=== PATIENT | female | born 1940 | race Caucasian/White ===

== ENCOUNTER → 2018-05-28 | Outpatient (CLI) | payer OTHER ==
[~2018-05-28] MED LIST: ALEVE220 MG PO; ASPIR 8181 MG PO; BRILINTA90 MG PO; CARVEDILOL12.5 MG; COREG3.125 MG PO; GABAPENTIN 100100 MG PO; GLUCOPHAGE1000 MG PO; KEFLEX500 MG PO; LEVOTHYROXIN0.112 M1 PO; LIPITOR 20 MG T20 M1 PO; LISINOPRIL5 MG PO; NAPROSYN500 MG PO; NITROGLYCERIN0.4 MG SUBLING; NORCO 5-325 TA1 EACH PO; OS-CAL 500+D C1 EACH PO; PENNSAID112 GM INTRAOCULR; PRILOSEC OTC20 MG PO; PRILOSEC20 MG; SYNTHROID75 MCG PO; TIMOLOL MA0.5 %/5 M2; TYLENOL325 MG PO; VICODIN 5-5001 EACH PO
--- NOTE | 2018-05-28 16:16 | 2DMMODE ---
[place] [address] 2 D/M-MODE ECHOCARDIOGRAM Name: DEE QUINTANA Room: [facility]#: [id number] Admission: 05/28/18 Attend Phys: MARYBETH Donaldson Discharge: Date of : 40 Date of Service: 05/28/18 1615 Report #: [id number] THIS REPORT FOR: //name// APPROVED REPORT Study performed: 05/28/2018 08:05:20 EXAM: Comprehensive 2D, Doppler, and color-flow Echocardiogram Patient Location: Out-Patient Status: routine BSA: 1.56 HR: 78 bpm BP: 150/78 mmHg Other Information Study Quality: Good Indications Aortic Valve Disease Cardiomyopathy 2D Dimensions IVSd: 12.83 (7-11mm) LVOT Diam: 20.10 (18-24mm) LVDd: 38.85 mm PWd: 11.70 (7-11mm) Ascending Ao: 28.33 (22-36mm) LVDs: 29.82 (25-40mm) Aortic Root: 29.60 mm Volumes Left Atrial Volume (Systole) LA ESV Index: 32.80 mL/m2 Aortic Valve AoV Peak Jaxson.: 2.40 m/s AO Peak Gr.: 23.07 mmHg LVOT Max P.55 mmHg AO Mean Gr.: 13.85 mmHg LVOT Mean P.90 mmHg LVOT Max V: 0.94 m/s AO V2 VTI: 45.52 cm LVOT Mean V: 0.64 m/s MARION (VTI): 1.38 cm2 LVOT V1 VTI: 19.82 cm Mitral Valve MV Peak Gr.: 7.77 mmHg MV Mean Gr.: 3.44 mmHg E/A Ratio: 0.56 MV Decel. Time: 352.23 [place] [address] 2 D/M-MODE ECHOCARDIOGRAM Name: ROB QUINTANAVIEVE Room: [facility]#: [id number] Admission: 05/28/18 Attend Phys: MARYBETH Donaldson Discharge: Date of : 40 Date of Service: 05/28/18 1615 Report #: [id number] MV E Max Jaxson.: 0.76 m/s MV PHT: 102.15 ms MVA (PHT): 2.15 cm2 TDI E/Lateral E': 12.67 E/Medial E': 15.20 Medial E' Jaxson.: 0.05 m/s Lateral E' Jaxson.: 0.06 m/s Pulmonary Valve PV Peak Jaxson.: 0.87 m/s PV Peak Gr.: 3.05 mmHg Tricuspid Valve RAP Estimate: 5.00 mmHg TR Peak Gr.: 22.33 mmHg RVSP: 27.33 mmHg PA Pressure: 27.33 mmHg Left Ventricle The left ventricle is normal size. There is significant distal septal and anteroapical hypo-akinesis There is normal left ventricular wall thickness. Left ventricular systolic function is moderately decreased. LVEF is 35%. Grade I - abnormal relaxation pattern. Right Ventricle The right ventricle is normal size. The right ventricular systolic function is normal. Atria Left atrium is moderately dilated. The right atrium size is normal. Aortic Valve Moderate aortic valve sclerosis. No aortic regurgitation is present. Mild aortic stenosis. Mitral Valve Severe mitral annular calcification. Mild mitral regurgitation. No significant mitral valve stenosis. Tricuspid Valve The tricuspid valve is normal in structure. Mild tricuspid regurgitation. Pulmonic Valve The pulmonary valve is normal in structure. There is no [place]mon[place] [address] 2 D/M-MODE ECHOCARDIOGRAM Name: DEE QUINTANA Room: [facility]#: [id number] Admission: 05/28/18 Attend Phys: Tiffany Blackman, DEMOLITIONIST Discharge: Date of : 40 Date of Service: 05/28/18 1615 Report #: [id number] Great Vessels The aortic root is normal in size. IVC is normal in size and collapses >50% with inspiration. Pericardium There is no pericardial effusion. <Conclusion> The left ventricle is normal size. There is normal left ventricular wall thickness. Left ventricular systolic function is moderately decreased. LVEF is 35%. Grade I - abnormal relaxation pattern. The right ventricle is normal size. Left atrium is moderately dilated. The right atrium size is normal. Moderate aortic valve sclerosis. No aortic regurgitation is present. Mild aortic stenosis. Severe mitral annular calcification. Mild mitral regurgitation. The tricuspid valve is normal in structure. Mild tricuspid regurgitation. IVC is normal in size and collapses >50% with inspiration. There is no pericardial effusion. There is significant distal septal and anteroapical hypo-akinesis <ELECTRONICALLY SIGNED> By: Bhavesh Hernandez MD, FACC 05/28/18 1615 1615 1615 Bhavesh Hernandez MD, FACC /INF
== END ==
LOC: M.CRD 07:56
DX: I08.1 Rheumatic disorders of both mitral and tricuspid valves (principal); I25.5 Ischemic cardiomyopathy

== ENCOUNTER 2019-04-30 12:10 | Inpatient (IN) | payer OTHER, SELFPAY ==
[~2019-04-30] VITALS: Ht 139.7 cm; Wt 67.1 kg
[2019-04-30 12:14] VITALS: BP 101/66
[2019-04-30 13:09] LABS: ABSOLUTE BASOPHILS 0.1 thou/uL (0.0-0.2); ABSOLUTE EOSINOPHILS 0.1 thou/uL (0.0-0.7); ABSOLUTE LYMPHOCYTES 1.9 thou/uL (0.8-5.3); ABSOLUTE MONOCYTES 0.7 thou/uL (0.0-1.2); ABSOLUTE NEUTROPHILS 5.9 thou/uL (1.6-8.1); EOSINOPHILS 0.8 %; HEMATOCRIT 34.5 % (37.0-47.0); HEMOGLOBIN 11.5 gm/dL (12.0-15.0); LYMPHOCYTES 22.1 %; MCH 26.7 pg (26.0-34.0); MCHC 33.3 g/dL (28.0-37.0); MCV 80.4 fL (80.0-100.0); MONOCYTES 8.5 %; MPV 7.4 fl. (7.2-11.1); NUCLEATED RBCS 0 /100WBC; PLATELET COUNT* 429 thou/uL (150-400); POLYS 67.6 %; RBC 4.29 mil/uL (4.20-5.00); RDW-CV 19.1 % (10.5-14.5); WBC 8.7 thou/uL (4.0-11.0)
[2019-04-30 13:18] LABS: CREATININE 0.8 mg/dL (0.6-1.3); POTASSIUM 5.1 mmol/L (3.5-5.1)
[2019-04-30 13:21] LABS: APTT 26.9 Seconds (25.0-31.3); INR 1.3; PROTIME 12.9 Seconds (9.20-11.50)
[2019-04-30 13:32] LABS: INFLUENZA A ANTIGEN Negative (Negative)
[2019-04-30 13:33] LABS: ALBUMIN 3.5 g/dL (3.4-5.0); CK-MB MASS 2.2 ng/mL (<0.5-3.6); MAGNESIUM 1.2 mg/dL (1.8-2.4); TOTAL BILIRUBIN 0.4 mg/dL (<0.1-1.0); TOTAL PROTEIN 6.7 g/dL (6.4-8.2)
--- NOTE | 2019-04-30 14:18 | EKG ---
[place] [address] ELECTROCARDIOGRAM REPORT Name: DEE QUINTANA Room: [place] [address] ADM IN [facility].#: [id number] Admission: 04/30/19 Attend Phys: Brian Burgess MD Discharge: Date of : 40 Report #: [id number] THIS REPORT FOR: //name// [facility] ED Test Date: 2019-04-30 Test Time: 12:14:59 Pat Name: DEE QUINTANA Department: Room: [facility] Gender: F Electric Cell Tender: : 1940 Requested By: Riely Villareal Order Number: [id number] : Bhavesh Hernandez Measurements Intervals [place] Rate: 120 P: W[place]: QRS: -15 QRSD: 158 T: 173 QT: 321 QTc: 454 Interpretive Statements Atrial fibrillation Left bundle branch block Compared to ECG 08/08/2016 08:07:24 Sinus rhythm no longer present Electronically Signed On 04-30-2019 14:18:05 PROFESSIONAL NURSING ASSISTANT by Bhavesh Hernandez [email or web address] <ELECTRONICALLY SIGNED> By: Bhavesh Hernandez MD, [facility] 04/30/19 1418 1214 1214 Bhavesh Hernandez MD, FAC /EPI
[2019-04-30 15:44] VITALS: BP 128/66
[2019-04-30 17:28] LABS: CHOLESTEROL 94 mg/dL (<200); HDL CHOLESTEROL 46 mg/dL (>40); LDL CHOLESTEROL 34 mg/dL (<100); SERUM ASSESSMENT Clear; TRIGLYCERIDE 72 mg/dL (<150); VLDL 14 mg/dL (<40)
[2019-04-30 17:29] LABS: URINE BILIRUBIN NEGATIVE (Negative); URINE BLOOD NEGATIVE (Negative); URINE CLARITY CLEAR; URINE COLOR YELLOW; URINE GLUCOSE-RANDOM NEGATIVE (Negative); URINE KETONES 1+ (Negative); URINE LEUKOCYTES-REFLEX NEGATIVE (Negative); URINE NITRITE-REFLEX NEGATIVE (Negative); URINE PROTEIN NEGATIVE (Negative); URINE SPECIFIC GRAVITY >= 1.030 (1.005-1.030); URINE UROBILINOGEN 0.2 E.U./dl (0.2-1.0)
[2019-04-30] MEDS ORDERED: IRON325 PO (17:59)
[2019-04-30] MEDS ORDERED: VITAMIN D32000 UNIT PO (18:00)
[2019-04-30] MEDS ORDERED: OCUVITE ADULT1 EAC1 PO (18:02)
[2019-04-30 20:02] VITALS: BP 104/75
[2019-04-30 21:00] VITALS: BP 130/67
[2019-04-30 22:01] VITALS: BP 90/68
[2019-04-30 23:01] VITALS: BP 122/57
[2019-05-01] VITALS (23 sets, daily range): BP systolic 97–169; BP diastolic 59–134
[2019-05-01 03:40] LABS: HEMATOCRIT 30.8 % (37.0-47.0); HEMOGLOBIN 10.5 gm/dL (12.0-15.0); MCH 26.9 pg (26.0-34.0); MCHC 34.1 g/dL (28.0-37.0); MCV 78.8 fL (80.0-100.0); MPV 7.4 fl. (7.2-11.1); RBC 3.91 mil/uL (4.20-5.00); RDW-CV 18.7 % (10.5-14.5); WBC 7.8 thou/uL (4.0-11.0)
[2019-05-01 04:10] LABS: CALCIUM 8.8 mg/dL (8.5-10.1); CREATININE 0.6 mg/dL (0.6-1.3); MAGNESIUM 1.8 mg/dL (1.8-2.4); POTASSIUM 4.8 mmol/L (3.5-5.1)
--- NOTE | 2019-05-01 17:19 | CARDNUC ---
[place] [address] CARDIAC NUCLEAR IMAGING REPORT Name: DEE QUINTANA Room: [address] IN [facility]#: [id number] Admission: 04/30/19 Attend Phys: Brian Burgess MD Discharge: Date of : 40 Date of Service: 05/01/19 1718 Report #: [id number] THIS REPORT FOR: //name// APPROVED REPORT Imaging Protocol: Rest Tc-99m/Stress Tc-99m 1 day Study performed: 04/30/2019 16:45:00 Indication: Fatigue Patient Location: In-Patient Room #: icu-6 Stress Tech: Maria Antonia Mccartney Stress Nurse: Rossi Calles RN NM Tech:ANGEL Carcamo Ht: 4 ft 7 in Wt: 147 lbs BSA: 1.54 m2 BMI: 34.16 Medical History Medical History: CAD non obstructive, Cardiomyopathy, HTN, Hyperlipidemia, Diabetes, Atrial Fibrillation Medications: asa-325 lisinopril, diltiazem, carvedilol, amlodipine, atorvastatin Allergies: nkda Cardiac Risk Factors: Age, Hyperlipidemia, HTN, DM, FHX of CAD Previous Cardiac Procedures: PCI Exercise History: Indeterminate Meds Held (24 hrs): carvedilol Resting Data Rest SPECT myocardial perfusion imaging was performed in supine position 30 minutes following the intravenous injection of 11.5 mCi of Tc-99m Sestamibi. Time of rest injection: 1215 Date: 05/01/2019 The images were gated to evaluate regional wall motion and calculate left ventricular ejection fraction. Administration Route: IV Pharmacologic Stress Pharmacologic stress test was performed by injecting Regadenoson 0.4 mg IV push over 10-15 seconds immediately followed by the intravenous injection of 34.3 mCi of Tc-99m Sestamibi. Time of stress injection: 1355 Date: 05/01/2019 Administration Route: [place] [address] CARDIAC NUCLEAR IMAGING REPORT Name: DEE QUINTANA Room: [address] IN [facility]#: [id number] Admission: 04/30/19 Attend Phys: Brian Burgess MD Discharge: Date of : 40 Date of Service: 05/01/19 1718 Report #: [id number] Gated Stress SPECT was performed 40 minutes after stress injection. The images were gated to evaluate regional wall motion and calculate left ventricular ejection fraction. Stress only was performed in the Supine position. Stress Test Details Stress Test: Pharmacologic stress testing performed using 0.4 mg of regadenoson per 5 mL given IV over 10 seconds. Reason for pharmacologic stress test: a fib. 60 mg caffeine given for nausea. HR Max Heart Rate (APMHR): 142 bpm Resting HR: 77 bpm Target HR (85% APMHR): 120 bpm Max HR Achieved: 140 bpm % of APMHR: 98 Recovery HR: 92 bpm BP Resting BP: 123/72 mmHg Max BP: 167/73 mmHg Recovery BP: 155/79 mmHg ECG Resting ECG: atrial fibrillation, LBBB Stress ECG: atrial fibrillation, LBBB Recovery ECG: atrial fibrillation, RBBB Clinical Reason for Termination: Completed protocol Exercise duration: 0 min sec Exercise capacity: 1 METs The patient tolerated Lexiscan infusion without significant cardiac symptoms. Nurse Comments pt has influeza b and elevated troponin x4. troponins leveling off. Dr Elizalde consulted regarding test. OK to do test per dr elizalde Stress ECG Conclusion The baseline 12-lead EKG shows atrial fibrillation with left bundle-branch block. EKGs obtained during and post Lexiscan infusion show atrial for ablation with left bundle-branch block. Study Quality Study: Good Artifact: [place] [address] CARDIAC NUCLEAR IMAGING REPORT Name: DEE QUINTANA Room: [address]#: [id number] Admission: 04/30/19 Attend Phys: Brian Burgess MD Discharge: Date of : 40 Date of Service: 05/01/19 1718 Report #: [id number] Study Data At rest, the left ventricular ejection fraction was 18%.. Post stress, the left ventricular ejection was 20%.. TID = 1.04. Perfusion Perfusion images show a moderate size severe intensity fixed apical defect consistent with prior infarct. There is photopenia involving the basal portion the inferior wall consistent with diaphragmatic attenuation artifact. No significant reversible defects were identified. Wall Motion There is global hypokinesis with akinesis of the apex. There is underlying left ventricular dyssynergy from bundle-branch block. Global LV systolic function is significantly decreased. Nuclear Conclusion ECG Findings: non-diagnostic Clinical Findings: negative for ischemia Nuclear Findings: negative for ischemia Exercise Capacity: not assessed Left Ventricular Function: abnormal Perfusion images show evidence of prior apical infarct. There is no evidence of ongoing ischemia. There is severe left ventricular systolic dysfunction as outlined above. This is a high risk study based on left ventricular systolic dysfunction. Consider echocardiographic correlation. <Conclusion> The baseline 12-lead EKG shows atrial fibrillation with left bundle-branch block. EKGs obtained during and post Lexiscan infusion show atrial for ablation with left bundle-branch block. <ELECTRONICALLY SIGNED> By: Doug Elizalde MD, FACC 05/01/191717 17 17 Doug Elizalde MD, FACC /INF
[2019-05-02] VITALS (13 sets, daily range): BP systolic 103–155; BP diastolic 48–82
[2019-05-02 03:13] LABS: HEMATOCRIT 33.8 % (37.0-47.0); HEMOGLOBIN 11.1 gm/dL (12.0-15.0); MCH 26.4 pg (26.0-34.0); MCHC 32.8 g/dL (28.0-37.0); MCV 80.6 fL (80.0-100.0); MPV 7.3 fl. (7.2-11.1); RBC 4.2 mil/uL (4.20-5.00); RDW-CV 19.3 % (10.5-14.5); WBC 7.8 thou/uL (4.0-11.0)
[2019-05-02 03:25] LABS: CALCIUM 8.6 mg/dL (8.5-10.1); CREATININE 0.7 mg/dL (0.6-1.3); MAGNESIUM 1.5 mg/dL (1.8-2.4); POTASSIUM 5.3 mmol/L (3.5-5.1); TROPONIN-I LEVEL 0.21 ng/mL (<0.06)
[2019-05-02] MEDS ORDERED: ELIQUIS5 MG PO (09:23)
[2019-05-02] MEDS ORDERED: TAMIFLU75 MG PO (09:23)
[2019-05-02] MEDS ORDERED: ASA81BEC PO (09:23)
[2019-05-02] MEDS ORDERED: PACERONE 200 M200 M1 PO (09:23)
[2019-05-02] MEDS ORDERED: CARVEDILOL12.5 MG PO (09:23)
--- NOTE | 2019-05-02 11:13 | 2DMMODE ---
[place] [address] 2 D/M-MODE ECHOCARDIOGRAM Name: DEE QUINTANA Room: [address] ADM IN [facility]#: [id number] Admission: 04/30/19 Attend Phys: Brian Burgess MD Discharge: Date of : 40 Date of Service: 05/02/19 1113 Report #: [id number] THIS REPORT FOR: //name// APPROVED REPORT Study performed: 05/02/2019 10:24:40 EXAM: Comprehensive 2D, Doppler, and color-flow Echocardiogram Patient Location: In-Patient Room #: 006 Status: routine BSA: 1.54 HR: 97 bpm BP: 103/71 mmHg Rhythm: NSR Other Information Study Quality: Good Indications Atrial Fibrillation Cardiomyopathy 2D Dimensions IVSd: 13.20 (7-11mm) LVOT Diam: 18.97 (18-24mm) LVDd: 37.17 mm PWd: 13.87 (7-11mm) LVDs: 30.32 (25-40mm) Aortic Root: 26.41 mm Volumes Left Atrial Volume (Systole) LA ESV Index: 65.90 mL/m2 Aortic Valve AoV Peak Jaxson.: 2.90 m/s AO Peak Gr.: 33.70 mmHg LVOT Max P.57 mmHg AO Mean Gr.: 19.98 mmHg LVOT Mean P.80 mmHg LVOT Max V: 0.94 m/s AO V2 VTI: 51.00 cm LVOT Mean V: 0.61 m/s MARION (VTI): 0.95 cm2 LVOT V1 VTI: 17.21 cm Mitral Valve MV Mean Gr.: 4.29 mmHg MV Decel. Time: 172.73 [place] [address] 2 D/M-MODE ECHOCARDIOGRAM Name: STEELEDEE Room: [address] ADM IN M.R.#: [id number] Admission: 04/30/19 Attend Phys: Brian Burgess MD Discharge: Date of : 40 Date of Service: 05/02/19 1113 Report #: [id number] MV PHT: 50.09 ms MVA (PHT): 4.39 cm2 TDI Medial E' Jaxson.: 0.06 m/s Lateral E' Jaxson.: 0.09 m/s Pulmonary Valve PV Peak Jaxson.: 1.01 m/s PV Peak Gr.: 4.12 mmHg Tricuspid Valve RAP Estimate: 5.00 mmHg TR Peak Gr.: 37.75 mmHg RVSP: 42.00 mmHg PA Pressure: 42.00 mmHg Left Ventricle The left ventricle is normal size. Regional wall motion abnormalities are noted with distal septal and apical akinesis. Mild concentric left ventricular hypertrophy. Left ventricular systolic function is moderate to severely decreased. LVEF is 30-35%. This study is not technically sufficient to allow evaluation of the LV diastolic function due to atrial fibrillation. Right Ventricle The right ventricle is normal size. The right ventricular systolic function is normal. Atria Left atrium is severely dilated. The right atrium size is normal. Aortic Valve Moderate aortic valve sclerosis. No aortic regurgitation is present. Moderate aortic stenosis. Mitral Valve Severe mitral annular calcification. Mild mitral regurgitation. No evidence of mitral valve stenosis. Tricuspid Valve The tricuspid valve is normal in structure. Mild tricuspid regurgitation. Moderate pulmonary hypertension. Pulmonic Valve The pulmonary valve is normal in structure. There is no pulmonic valvular [place] [address] 2 D/M-MODE ECHOCARDIOGRAM Name: DEE QUINTANA Room: [address] IN [facility].#: [id number] Admission: 04/30/19 Attend Phys: Brian Burgess MD Discharge: Date of : 40 Date of Service: 05/02/19 1113 Report #: [id number] Great Vessels The aortic root is normal in size. IVC is normal in size and collapses >50% with inspiration. Pericardium There is no pericardial effusion. <Conclusion> The left ventricle is normal size. Mild concentric left ventricular hypertrophy. Left ventricular systolic function is moderate to severely decreased. LVEF is 30-35%. This study is not technically sufficient to allow evaluation of the LV diastolic function due to atrial fibrillation. The right ventricle is normal size. Left atrium is severely dilated. The right atrium size is normal. Moderate aortic valve sclerosis. No aortic regurgitation is present. Moderate aortic stenosis. Severe mitral annular calcification. Mild mitral regurgitation. No evidence of mitral valve stenosis. The tricuspid valve is normal in structure. Mild tricuspid regurgitation. Moderate pulmonary hypertension. IVC is normal in size and collapses >50% with inspiration. There is no pericardial effusion. Regional wall motion abnormalities are noted with distal septal and apical akinesis. <ELECTRONICALLY SIGNED> By: Bhavesh Hernandez MD, FACC 05/02/19 1113 1113 111 Bhavesh Hernandez MD, FACC /INF
== END 2019-05-02 15:06 | disposition home or self-care (01) | DRG 281 ==
LOC: M.ERS 12:10 → M.ICU 13:49 → M.TBA-ER 13:49 → M.ICU 15:50
PROVIDERS: Emergency Medicine; Internal Medicine; Registered Nurse; ADMIT Family Medicine
DX: I21.4 Non-ST elevation (NSTEMI) myocardial infarction (principal); I50.22 Chronic systolic (congestive) heart failure; I48.91 Unspecified atrial fibrillation; E11.9 Type 2 diabetes mellitus without complications; E03.9 Hypothyroidism, unspecified; I25.10 Atherosclerotic heart disease of native coronary artery without angina pectoris; I25.5 Ischemic cardiomyopathy; E78.5 Hyperlipidemia, unspecified; I35.0 Nonrheumatic aortic (valve) stenosis; M19.90 Unspecified osteoarthritis, unspecified site; J11.1 Influenza due to unidentified influenza virus with other respiratory manifestations; Z79.82 Long term (current) use of aspirin; Z79.899 Other long term (current) drug therapy; Z85.43 Personal history of malignant neoplasm of ovary; Z95.5 Presence of coronary angioplasty implant and graft; Z90.710 Acquired absence of both cervix and uterus; Z90.49 Acquired absence of other specified parts of digestive tract

== ENCOUNTER → 2019-06-04 | Outpatient (CLI) | payer OTHER, SELFPAY ==
[~2019-06-04] MED LIST changes: +AMIODARONE HCL400 MG PO; +ASA81BEC PO; +CARVEDILOL12.5 MG PO; +ELIQUIS5 MG PO; +IRON325 PO; +OCUVITE ADULT1 EAC1 PO; +PACERONE 200 M200 M1 PO; +TAMIFLU75 MG PO; +TIMOLOL MALEATE5 M2 OPHTHALMIC; +VITAMIN D32000 UNIT PO
[2019-06-04 09:16] LABS: HEMATOCRIT 33.3 % (37.0-47.0); HEMOGLOBIN 10.8 gm/dL (12.0-15.0); MCH 26.8 pg (26.0-34.0); MCHC 32.5 g/dL (28.0-37.0); MCV 82.4 fL (80.0-100.0); MPV 7.5 fl. (7.2-11.1); RBC 4.04 mil/uL (4.20-5.00); RDW-CV 18.3 % (10.5-14.5); WBC 4.7 thou/uL (4.0-11.0)
[2019-06-04 09:19] LABS: CREATININE 0.9 mg/dL (0.6-1.3); POTASSIUM 5.6 mmol/L (3.5-5.1)
[2019-06-04 09:21] VITALS: BP 157/96
[2019-06-04 09:24] LABS: ALBUMIN 3.3 g/dL (3.4-5.0); TOTAL BILIRUBIN 0.5 mg/dL (<0.1-1.0); TOTAL PROTEIN 6.5 g/dL (6.4-8.2)
--- NOTE | 2019-06-04 09:46 | EKG ---
[place] [address] ELECTROCARDIOGRAM REPORT Name: ROB QUINTANAVIEVE Room: [facility]#: [id number] Admission: 06/04/19 Attend Phys: Sam Farooq MD, F Discharge: Date of : 40 Report #: [id number] THIS REPORT FOR: //name// [facility] Test Date: 2019-06-04 Test Time: 09:08:46 Pat Name: DEE QUINTANA Department: Room: Gender: F Implant Coordinator: : 1940 Requested By: Sam Farooq Order Number: [id number] Reading MD: Sam Farooq Measurements Intervals [place] Rate: 65 P: 30 IN: 184 QRS: -18 QRSD: 173 T: 152 QT: 471 QTc: 490 Interpretive Statements Sinus rhythm artifact noted Left bundle branch block Compared to ECG 04/30/2019 12:14:59 Atrial fibrillation no longer present Electronically Signed On 06-04-2019 9:46:10 TRAVEL ATTENDANTS by Sam Farooq [email or web address] <ELECTRONICALLY SIGNED> By: Sam Farooq MD, [facility] 06/04/1946 7 Sam Farooq MD, FACC /EPI
== END | disposition home or self-care (01) ==
LOC: M.CL 08:14
PROVIDERS: Internal Medicine Cardiovascular Disease
DX: I48.91 Unspecified atrial fibrillation (principal); Z53.9 Procedure and treatment not carried out, unspecified reason; I50.9 Heart failure, unspecified; I25.2 Old myocardial infarction; Z98.890 Other specified postprocedural states; Z79.899 Other long term (current) drug therapy; Z79.01 Long term (current) use of anticoagulants

== ENCOUNTER 2019-06-21 06:13 | Inpatient (IN) | payer OTHER, SELFPAY ==
[~2019-06-21] VITALS: Ht 142.2 cm; Wt 65.8 kg
[~2019-06-21 06:13] MED LIST changes: -AMIODARONE HCL400 MG PO; -TIMOLOL MALEATE5 M2 OPHTHALMIC
[2019-06-21 06:31] VITALS: BP 152/87
[2019-06-21] MEDS ORDERED: PRILOSEC OTC20 MG PO (06:40)
[2019-06-21 06:47] LABS: ABSOLUTE BASOPHILS 0.1 thou/uL (0.0-0.2); ABSOLUTE EOSINOPHILS 0.1 thou/uL (0.0-0.7); ABSOLUTE LYMPHOCYTES 1.2 thou/uL (0.8-5.3); ABSOLUTE MONOCYTES 0.6 thou/uL (0.0-1.2); BASOPHILS 1.2 %; EOSINOPHILS 1.4 %; HEMOGLOBIN 10.9 gm/dL (12.0-15.0); LYMPHOCYTES 17.3 %; MCH 27.3 pg (26.0-34.0); MCHC 33.1 g/dL (28.0-37.0); MCV 82.4 fL (80.0-100.0); MONOCYTES 8.4 %; MPV 7.7 fl. (7.2-11.1); NUCLEATED RBCS 0 /100WBC; PLATELET COUNT* 407 thou/uL (150-400); POLYS 71.7 %; RBC 4.01 mil/uL (4.20-5.00); RDW-CV 17.8 % (10.5-14.5)
[2019-06-21 06:56] LABS: CREATININE 0.9 mg/dL (0.6-1.3); POTASSIUM 5.1 mmol/L (3.5-5.1)
[2019-06-21 07:07] LABS: ALBUMIN 3.2 g/dL (3.4-5.0); TOTAL BILIRUBIN 0.7 mg/dL (<0.1-1.0); TOTAL PROTEIN 6.7 g/dL (6.4-8.2)
--- NOTE | 2019-06-21 07:12 | NUR ---
THIS NURSE ASSUMED PT CARE AT THIS TIME AFTER REPORT WAS RECEIVED FROM NATALIYA BRAUN.
[2019-06-21 07:58] LABS: INR 1.2; PROTIME 12.6 Seconds (9.20-11.50)
[2019-06-21 09:26] LABS: URINE BILIRUBIN NEGATIVE (Negative); URINE BLOOD 1+ (Negative); URINE CLARITY CLEAR; URINE COLOR YELLOW; URINE GLUCOSE-RANDOM NEGATIVE (Negative); URINE KETONES NEGATIVE (Negative); URINE LEUKOCYTES-REFLEX NEGATIVE (Negative); URINE NITRITE-REFLEX NEGATIVE (Negative); URINE PROTEIN NEGATIVE (Negative); URINE UROBILINOGEN 0.2 E.U./dl (0.2-1.0)
[2019-06-21 09:42] LABS: BACTERIA-REFLEX None Seen /HPF (None Seen); CASTS None Seen /LPF (None Seen); CRYSTALS None Seen /LPF (None Seen); MUCUS None Seen strn/LPF (None Seen); SQUAMOUS NONE SEEN /LPF (0-3); URINE RBC 0-2 Rare /HPF (0-2); URINE WBC-REFLEX None Seen /HPF (0-5)
[2019-06-21 11:22] VITALS: BP 159/71
--- NOTE | 2019-06-21 16:16 | NUR ---
THIS NURSE GAVE REPORT TO NATALIYA HARRISON AT THIS TIME. NATALIYA HARRISON TO ASSUME PT CARE INPATIENT NURSE.
[2019-06-21 16:17] VITALS: BP 138/51
[2019-06-21 16:38] VITALS: BP 149/73
[2019-06-21] MEDS ORDERED: TIMOLOL MALEATE5 M2 OPHTHALMIC (16:44)
[2019-06-21] MEDS ORDERED: AMIODARONE HCL400 MG PO (16:47)
--- NOTE | 2019-06-21 17:29 | NUR ---
PT ADMITTED TO ROOM 213, ARRIVING VIA CART AT 1630- FASHION PATTERNMAKER PLACED ORDERED, TRACING SR/1ST DEGREE/BBB- PT A&O X4- CONTINENT OF B/B- SBA WITH TRANSFERS- DIMINISHED LUNG SOUNDS NOTED, DYSPNEA NOTED ON EXERTION- VSS, 02 SAT 96% ON 2L VIA NC- ABD SOFT/ROUND/NON-TENDER, BS X4 QUADS- LAST BM REPORTED THIS AM- IV NOTED TO RIGHT AC INTACT AND SL- 2+ BLE/PEDAL EDEMA NOTED- BS NOTED TO BE 112, SCHEDULED METFORMIN GIVEN- SKIN C/D/I- PT DENIES ANY C/O PAIN/DISCOMFORT AT THIS TIME- CALL LIGHT AND PERSONAL BELONGINGS WITH IN REACH- HOURLY ROUNDS IN PLACE R/T SAFETY/NEEDS- ALL NEEDS MET AT THIS TIME-WCTM
[2019-06-21 20:00] VITALS: BP 114/58
[2019-06-22] VITALS (7 sets, daily range): BP systolic 87–138; BP diastolic 44–79
[2019-06-22 04:45] LABS: HEMATOCRIT 31.6 % (37.0-47.0); HEMOGLOBIN 10.7 gm/dL (12.0-15.0); MCH 27.5 pg (26.0-34.0); MCHC 33.9 g/dL (28.0-37.0); MCV 81.1 fL (80.0-100.0); MPV 7.6 fl. (7.2-11.1); RBC 3.9 mil/uL (4.20-5.00); RDW-CV 17.5 % (10.5-14.5); WBC 5.1 thou/uL (4.0-11.0)
[2019-06-22 04:52] LABS: CALCIUM 7.9 mg/dL (8.5-10.1); CREATININE 0.8 mg/dL (0.6-1.3); MAGNESIUM 1.2 mg/dL (1.8-2.4); POTASSIUM 4.3 mmol/L (3.5-5.1)
--- NOTE | 2019-06-22 04:53 | NUR ---
ASSUMED CARE OF PT AFTER REPORT AT 1930. PT A&OX4. VSS. PHYSICAL ASSESSMENT COMPLETED AND CHARTED. PT ON O2 AT 2L NC. PT TRACING SR/BBB ON TELE. PT UPSTANDBY TO RESTROOM. PT DENIES ANY PAIN OR DISCOMFORT. PT ABLE TO SLEEP WELL ON BED. FALL PRECAUTIONS IN PLACE. CALL LIGHT WITHIN REACH.
--- NOTE | 2019-06-22 09:40 | NUR ---
ASSUMED CARE OF PT THIS AM AROUND 0715- SPORTS THERAPIST IN PLACE ORDERED, TRACING SR/BBB- UPON ASSESSMENT PT NOTED TO BE SITTING UP ON SIDE OF BED- PT A&O X4- CONTINENT OF BOWEL/BLADDER- SBA WITH TRANSFERS- LCTA/DIMINISHED- DYSPNEA NOTED ON EXERTION- VSS, O2 SAT 94% ON RA- ABD SOFT/ROUND/NON-TENDER, BS X4 QUADS- LAST BM REPORTED 06/21/19- IV NOTED TO RIGHT AC INTACT AND SL- GOOD PO INTAKE NOTED THIS AM WITH BREAKFAST, BS MONITORED ORDERED ADN CONTROLLED PER METFORMIN- 2+ BLE/PEDAL EDEMA NOTED- MG NOTED AT 1.2 AND IS CURRENLTY BEIGN REPLACED PER PROTOCOL WITH REDRAE TO FOLLOW- CALL LIGHT AND PERSONAL BELONGINGS WITH IN REACH- PT MAKES NEEDS KNOWN- ALL NEEDS MET AT THIS TIME-WCDO
--- NOTE | 2019-06-22 12:35 | CON ---
[address] [address] CONSULTATION Name: DEE QUINTANA Room: [address] IN [facility]#: [id number] Admission: 06/21/19 Attend Phys: Miah Plaza, Discharge: Date of : 40 Report #: [id number] THIS REPORT FOR: //name// cc: Edwardo Grace Steve T. DO THIS REPORT FOR: //name// CC: Edwardo Schneider DATE OF SERVICE: 06/21/2019 CARDIOLOGY CONSULTATION HISTORY OF PRESENT ILLNESS: The patient is a 79-year-old white female who I was asked to see in the Emergency Room today after she complained of shortness of breath. The patient has an extensive and complicated past medical history. Her first coronary angioplasty was done back in 2000 at [facility]. I placed a second coronary stent in 2017 here at [place]. When I performed a cardiac catheterization, there was a 70% narrowing of the proximal LAD, the distal branch of the circumflex had 90% stenosis and a 60% narrowing of the right coronary artery. The stent in the distal right coronary artery had no restenosis. I then placed a new drug-eluting stent in the posterior lateral branch of the distal circumflex artery. Her last echocardiogram in 04/2019 showed an ejection fraction of 30%, left ventricular hypertrophy, left atrial enlargement, moderate aortic stenosis. She has been followed in the Cardiology Clinic. I last saw her a year ago. She was admitted to [facility] in April with atrial fibrillation. She was placed on amiodarone and Eliquis. She converted to sinus rhythm. She was just seen by my nurse practitioner on 05/23. At that time, she appeared to be in atrial fibrillation, and the amiodarone was increased to 200 mg twice a day, and she was scheduled for cardioversion. However, when she returned for cardioversion, she was in sinus rhythm. She denies recent palpitations or bleeding. She denies recent chest pain or arm pain. She is not very active at this time. She was doing well until last night, she awakened with shortness of breath and edema. She has had no fever or cough. She did note some tightness in her chest with no radiation of the pain. Her brought her to the Emergency Room. She is admitted for further evaluation and treatment. PAST MEDICAL HISTORY: She has had previous bariatric surgery, hysterectomy for ovarian cancer, cholecystectomy, and thyroidectomy. MEDICATIONS: At this time include amiodarone 200 mg once a day, Eliquis 5 mg twice a day, Lipitor 40 mg a day, carvedilol 6.25 mg twice day, Neurontin, lisinopril 2.5 mg a day, [place] [address] CONSULTATION Name: DEE QUINTANA Room: [address] IN [facility]#: [id number] Admission: 06/21/19 Attend Phys: Miah Plaza, Discharge: Date of : 40 Report #: [id number] ALLERGIES: SHE HAS INTOLERANCE TO HYDROCODONE. FAMILY HISTORY: Positive for heart disease. SOCIAL HISTORY: She is . She and her live in [place], [place]. Nonsmoker, nondrinker. REVIEW OF SYSTEMS: She has had no history of stroke. She did have a previous carotid Doppler study in 2017 that showed no significant stenosis. PHYSICAL EXAMINATION: CHEST: Revealed decreased breath sounds at bases. CARDIAC: Regular rate and rhythm, grade 3 systolic ejection murmur at left sternal border. ABDOMEN: Soft. EXTREMITIES: Had pitting edema to mid tibial area. SKIN: Cool and dry. NEUROLOGIC: Nonfocal. RADIOLOGICAL DATA: Her ECG, when she arrived, showed a sinus rhythm with a left bundle-branch block. Her workup in the Emergency Room showed mild interstitial edema. Normal heart size. LABORATORY WORK: Sodium 140, potassium 5.1, BUN 18, and creatinine 0.9. Liver function studies were normal. BNP 6451. In April, her TSH was 1.6. White blood cell count 7.0, hemoglobin 10.9, and hematocrit 33. In 2014, her hemoglobin is 10.7. IMPRESSION AND RECOMMENDATIONS: 1. Acute on chronic systolic heart failure. Recommend Lasix. I would consider adding Aldactone. I would consider switching from lisinopril to Entresto. 2. History of atrial fibrillation. The patient now in sinus rhythm on amiodarone. I will continue Eliquis. 3. Hyperlipidemia. The patient is on a statin drug. 4. Moderate aortic stenosis. 5. History of ovarian cancer with previous hysterectomy. 6. Diabetes. <ELECTRONICALLY SIGNED> By: Sam Farooq MD, FACC 06/22/19 1235 1217 [id number] Farooq MD, LOCATED WITHIN [facility] /nt
[2019-06-23 00:49] VITALS: BP 75/41
[2019-06-23 04:00] VITALS: BP 107/54
--- NOTE | 2019-06-23 05:24 | NUR ---
ASSUMED CARE OF PT AFTER REPORT AT 1930. PT A&OX4. PHYSICAL ASSESSMENT COMPLETED AND CHARTED. PT ON RA. PT TRACING SR/BBB ON TELE. PT UPSTANDBY TO RESTROOM. PT DENIES ANY PAIN OR DISCOMFORT. PT BP 75/41. ASYMPTOMATIC. DR PALOMO MADE AWARE WITH NEW ORDERS. PT ABLE TO SLEEP WELL ON BED. FALL PRECAUTIONS IN PLACE. CALL LIGHT WITHIN REACH.
[2019-06-23 05:55] LABS: HEMATOCRIT 34.6 % (37.0-47.0); HEMOGLOBIN 11.4 gm/dL (12.0-15.0); MCH 26.7 pg (26.0-34.0); MCHC 32.8 g/dL (28.0-37.0); MCV 81.4 fL (80.0-100.0); MPV 7.3 fl. (7.2-11.1); RBC 4.26 mil/uL (4.20-5.00); RDW-CV 17.5 % (10.5-14.5); WBC 6.5 thou/uL (4.0-11.0)
[2019-06-23 06:09] LABS: CALCIUM 8.1 mg/dL (8.5-10.1); MAGNESIUM 3.8 mg/dL (1.8-2.4)
[2019-06-23 12:00] VITALS: BP 118/64
--- NOTE | 2019-06-23 12:23 | NUR ---
Pt is A&O, has some recall issues. Resides at home with . Independent. Pt uses a cane for mobility. Supportive family. No hx of HH or SNF. Spoke with , plan HH at [place]. Following.
--- NOTE | 2019-06-23 12:56 | 2DMMODE ---
[facility] [place] [address] 2 D/M-MODE ECHOCARDIOGRAM Name: DEE QUINTANA Room: [address] ADM IN [place].#: [id number] Admission: 06/21/19 Attend Phys: Miah Mariee Discharge: Date of : 40 Date of Service: 06/23/19 1255 Report #: [id number] THIS REPORT FOR: cc: Edwardo Grace,Edwardo Santamaria,Bhavesh Elizondo MD [facility] ~ APPROVED REPORT Study performed: 06/23/2019 11:10:44 EXAM: Limited 2D Echocardiogram Patient Location: In-Patient Room #: Replaced by [facility] Status: routine BSA: 1.56 HR: 69 bpm BP: 107/54 mmHg Rhythm: NSR Other Information Study Quality: Good Indications Congestive Heart Failure Left Ventricle The left ventricle is normal size. There is diffuse hypkinesis of left ventricular wall motion. Mild concentric left ventricular hypertrophy. Left ventricular systolic function is moderate to severely decreased. LVEF is 30%. Right Ventricle The right ventricle is normal size. The right ventricular systolic function is normal. Atria Left atrium is moderately dilated. The right atrium size is normal. Aortic Valve Moderate aortic valve sclerosis. Mitral Valve Severe mitral annular calcification. [place] [address] 2 D/M-MODE ECHOCARDIOGRAM Name: DEE QUINTANA Room: [address] ADM IN M.R.#: [id number] Admission: 06/21/19 Attend Phys: Miah Mariee Discharge: Date of : 40 Date of Service: 06/23/19 1255 Report #: [id number] Tricuspid Valve The tricuspid valve is normal in structure. Pulmonic Valve The pulmonary valve is normal in structure. Great Vessels The aortic root is normal in size. IVC is normal in size and collapses >50% with inspiration. Pericardium There is no pericardial effusion. <Conclusion> The left ventricle is normal size. Mild concentric left ventricular hypertrophy. Left ventricular systolic function is moderate to severely decreased. LVEF is 30%. The right ventricle is normal size. Left atrium is moderately dilated. The right atrium size is normal. Moderate aortic valve sclerosis. Severe mitral annular calcification. The tricuspid valve is normal in structure. IVC is normal in size and collapses >50% with inspiration. There is no pericardial effusion. There is diffuse hypkinesis of left ventricular wall motion. <ELECTRONICALLY SIGNED> By: Bhavesh Hernandez MD, FACC 06/23/19 1255 1255 1255 Bhavesh Hernandez MD, FACC /INF
[2019-06-23 16:00] VITALS: BP 122/62
--- NOTE | 2019-06-23 16:47 | NUR ---
I have reviewed the documentation by CESAR DE LA VEGA from 06/23/19 to 06/23/19 and I concur with it. HENNA SHAHID
--- NOTE | 2019-06-23 18:55 | NUR ---
PATIENT RESTING IN BED. VSS AND PATIENT IN NOAPPARENT SIGNS OF DISTRESS AT THIS TIME. UP STANDBY IN ROOM. LOWER EXTR EDEMA 1+. ROOM AIR. HOURLY ROUNDING COMPLETED FOR PATIENT SAFETY
[2019-06-23 20:00] VITALS: BP 112/49
[2019-06-24] VITALS: BP 117/53
--- NOTE | 2019-06-24 03:10 | NUR ---
PT ALERT ORIENTED. UP WITH STAND BY ASSIST AND WALKER. ON RA. TELEMETRY SHOWS SR BBB. WCTM
[2019-06-24 04:00] VITALS: BP 107/50
[2019-06-24 05:49] LABS: HEMOGLOBIN 10.4 gm/dL (12.0-15.0); MCH 27.3 pg (26.0-34.0); MCHC 33.5 g/dL (28.0-37.0); MCV 81.3 fL (80.0-100.0); MPV 7.7 fl. (7.2-11.1); RBC 3.81 mil/uL (4.20-5.00); RDW-CV 17.4 % (10.5-14.5); WBC 5.5 thou/uL (4.0-11.0)
[2019-06-24 05:50] LABS: CALCIUM 7.6 mg/dL (8.5-10.1); CREATININE 0.8 mg/dL (0.6-1.3); MAGNESIUM 2.3 mg/dL (1.8-2.4); POTASSIUM 4.6 mmol/L (3.5-5.1)
[2019-06-24 08:15] VITALS: BP 123/67
[2019-06-24 12:00] VITALS: BP 127/47
--- NOTE | 2019-06-24 12:48 | NUR ---
Spoke with Dr paulette roberts to home tomorrow with HH. Cardiac rehab met with Pt to discuss diet and recommended cessation of salt.
--- NOTE | 2019-06-24 15:18 | NUR ---
CHF DISCHARGE MEDICATION EDUCATION: PATIENT WAS PROVIDED WITH AN EDUCATION HANDOUT. THE FOLLOWING MEDICATIONS CARVEDIOLOL AND FUROSEMIDE WERE DISCUSSED REGARDING HOW TO TAKE, SIDE EFECTS, AND HOW IT WORKS. ALL QUESTIONS AND CONCERNS WERE ADDRESSED. THANK YOU.
[2019-06-24 16:00] VITALS: BP 109/67
--- NOTE | 2019-06-24 16:33 | NUR ---
I have reviewed the documentation by CESAR DE LA VEGA from 06/24/19 to 06/24/19 and I concur with it. HENNA SHAHID
[2019-06-24 20:00] VITALS: BP 143/59
--- NOTE | 2019-06-24 20:26 | NUR ---
I ASSUMED CARE OF THE PATIENT AT 0700. SHE IS ALERT AND ORIENTED X4 AND IS UP AD N[place] WITH A WALKER. BED IS IN THE LOW LOCKED POSITION AND CALL LIGHT IS IN REACH. HOURLY ROUNDING IS COMPLETED AND PATIENT NEEDS ARE MET. PAIN IS DENIED. SHE IS ON THE MONITOR AND LIVES AT HOME WITH HER . HE WAS AT THE BEDSIDE PART OF THE DAY. SHE IS PROGRESSING TOWARDS HER GOALS. WILL CONTINUE TO MONITOR.
[2019-06-25] VITALS: BP 96/37
[2019-06-25 00:30] VITALS: BP 112/60
[2019-06-25 04:00] VITALS: BP 95/47
[2019-06-25 05:14] LABS: HEMATOCRIT 33.1 % (37.0-47.0); HEMOGLOBIN 10.9 gm/dL (12.0-15.0); MCHC 32.9 g/dL (28.0-37.0); MCV 82.1 fL (80.0-100.0); MPV 7.2 fl. (7.2-11.1); RBC 4.04 mil/uL (4.20-5.00); RDW-CV 16.8 % (10.5-14.5); WBC 4.9 thou/uL (4.0-11.0)
[2019-06-25 05:24] LABS: CALCIUM 7.6 mg/dL (8.5-10.1); CREATININE 0.9 mg/dL (0.6-1.3); MAGNESIUM 1.5 mg/dL (1.8-2.4); POTASSIUM 5.2 mmol/L (3.5-5.1)
--- NOTE | 2019-06-25 07:10 | NUR ---
CHANGE OF SHIFT, BEDSIDE REPORT GIVEN PATIENT SEEN AT BEDSIDE, IN BED RESTING ASSUMED PATIENT CARE
--- NOTE | 2019-06-25 07:58 | NUR ---
ASSUMED PATIENT CARE AT 1900. ASSESSMENT COMPLETED CHARTED. PATIENT IS SR WITH A BBB ON THE MONITOR. HOURLY ROUNDING IN PLACE FOR PATIENT SAFETY. CLWR.
[2019-06-25 08:00] VITALS: BP 116/62
[2019-06-25] MEDS ORDERED: CARVEDILOL3.125 MG PO (08:19)
[2019-06-25] MEDS ORDERED: LASIX 40 MG TAB40 M1 PO (08:19)
[2019-06-25 11:37] VITALS: BP 104/62
--- NOTE | 2019-06-25 12:09 | NUR ---
Pt discharging to home today, Pt opted to do cardiac rehab over HH.
--- NOTE | 2019-06-25 13:00 | NUR ---
CHANGE OF SHIFT, BEDSIDE REPORT GIVEN PATIENT SEEN AT BEDSIDE, IN BED ASLEEP ASSUMED PATIENT CARE
--- NOTE | 2019-06-25 13:00 | NUR ---
DISCHARGE TO HOME WITH HOME DISCHARGE INFORMATION GIVEN, ACKNOWLEDGED INFORMATION, SIGNED COPIES GIVEN IV AND HEART MONITOR REMOVED PERSONAL BELONGIGNS RETURNED ASSISTED OUT VIA GOOD CONDTION TO WAITING CAR
--- NOTE | 2019-06-25 13:55 | EKG ---
[place] [address] ELECTROCARDIOGRAM REPORT Name: DEE QUINTANA Room: [address] ADM IN M.R.#: [id number] Admission: 06/21/19 Attend Phys: Miah Mariee Discharge: Date of : 40 Date of Service: 06/21/1918 Report #: [id number] THIS REPORT FOR: cc: Edwardo Grace Steve T. 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
== END 2019-06-25 13:00 | disposition home health service (06) | DRG 292 ==
LOC: M.ERS 06:13 → M.TBA-ER 07:27 → M.2W 07:27
PROVIDERS: Emergency Medicine; Internal Medicine; ADMIT Family Medicine
DX: I11.0 Hypertensive heart disease with heart failure (principal); D68.69 Other thrombophilia; I50.23 Acute on chronic systolic (congestive) heart failure; E11.9 Type 2 diabetes mellitus without complications; E89.0 Postprocedural hypothyroidism; I25.10 Atherosclerotic heart disease of native coronary artery without angina pectoris; M19.90 Unspecified osteoarthritis, unspecified site; I35.0 Nonrheumatic aortic (valve) stenosis; E78.5 Hyperlipidemia, unspecified; I25.5 Ischemic cardiomyopathy; D64.9 Anemia, unspecified; I48.0 Paroxysmal atrial fibrillation; I95.2 Hypotension due to drugs; T50.995A Adverse effect of other drugs, medicaments and biological substances, initial encounter; Z90.710 Acquired absence of both cervix and uterus; Z95.5 Presence of coronary angioplasty implant and graft; Z90.721 Acquired absence of ovaries, unilateral; Z85.43 Personal history of malignant neoplasm of ovary; Z90.49 Acquired absence of other specified parts of digestive tract; Z79.01 Long term (current) use of anticoagulants; Z79.899 Other long term (current) drug therapy; Z79.82 Long term (current) use of aspirin; Z79.84 Long term (current) use of oral hypoglycemic drugs; Z72.89 Other problems related to lifestyle; Z82.49 Family history of ischemic heart disease and other diseases of the circulatory system; Y92.89 Other specified places as the place of occurrence of the external cause; Z23 Encounter for immunization; Z98.42 Cataract extraction status, left eye; Z98.41 Cataract extraction status, right eye; E87.5 Hyperkalemia

== ENCOUNTER → 2019-06-27 | Outpatient (CLI) | payer OTHER, SELFPAY ==
[~2019-06-27] MED LIST changes: +AMIODARONE HCL400 MG PO; +CARVEDILOL3.125 MG PO; +LASIX 40 MG TAB40 M1 PO; +TIMOLOL MALEATE5 M2 OPHTHALMIC
[2019-06-27 11:14] LABS: CALCIUM 8.7 mg/dL (8.5-10.1); CREATININE 1.2 mg/dL (0.6-1.3); POTASSIUM 4.4 mmol/L (3.5-5.1)
== END ==
LOC: M.LAB 10:33
PROVIDERS: Registered Nurse
DX: I25.5 Ischemic cardiomyopathy (principal)

== ENCOUNTER → 2020-03-15 | Day surgery (SDC) | payer OTHER, SELFPAY ==
[~2020-03-15] MED LIST changes: +COREG6.25 MG PO
--- NOTE | ~2020-03-15 | PROC ---
[facility] [address] [place] [address] PROCEDURE REPORT Name: GUILLEROB RAGLANDDEE Room: [facility].#: [id number] Admission: 03/15/20 Attend Phys: Pop Nelson MD Discharge: Date of : 40 Report #: [id number] THIS REPORT FOR: //name// cc: Edwardo Grace Steve T. DO ~ For GI report, please see the Provation report in Perceptive 7 content. By: [id number] Records Staff MARLO /ATIYA
[2020-03-15 09:49] LABS: HEMATOCRIT 31.1 % (37.0-47.0); HEMOGLOBIN 9.4 gm/dL (12.0-15.0); MCH 23.7 pg (26.0-34.0); MCHC 30.4 g/dL (28.0-37.0); MPV 7.5 fl. (7.2-11.1); RBC 3.98 mil/uL (4.20-5.00); RDW-CV 17.9 % (10.5-14.5); WBC 5.8 thou/uL (4.0-11.0)
[2020-03-15 10:34] LABS: CALCIUM 8.9 mg/dL (8.5-10.1); CREATININE 1.4 mg/dL (0.6-1.3); POTASSIUM 4.7 mmol/L (3.5-5.1)
== END | disposition home or self-care (01) ==
LOC: M.SUR 09:10
PROVIDERS: ATTEND Internal Medicine Gastroenterology
DX: R19.5 Other fecal abnormalities (principal); K57.30 Diverticulosis of large intestine without perforation or abscess without bleeding; K64.8 Other hemorrhoids; I25.10 Atherosclerotic heart disease of native coronary artery without angina pectoris; I50.9 Heart failure, unspecified; I48.91 Unspecified atrial fibrillation; Z79.899 Other long term (current) drug therapy; Z98.890 Other specified postprocedural states

== ENCOUNTER → 2020-03-16 | Day surgery (SDC) | payer OTHER, SELFPAY ==
--- NOTE | ~2020-03-16 | PROC ---
[facility] [address] [place] [address] PROCEDURE REPORT Name: ROB QUINTANAVIEVE Room: [facility].#: [id number] Admission: 03/16/20 Attend Phys: Pop Nelson MD Discharge: Date of : 40 Report #: [id number] THIS REPORT FOR: //name// cc: Edwardo Grace Steve T. DO ~ For GI report, please see the Provation report in Perceptive 7 content. By: [id number] Records Staff MARLO /ATIYA
== END | disposition home or self-care (01) ==
LOC: M.SUR 09:06
PROVIDERS: ATTEND Internal Medicine Gastroenterology
DX: R19.5 Other fecal abnormalities (principal); K57.30 Diverticulosis of large intestine without perforation or abscess without bleeding; K64.8 Other hemorrhoids; I12.9 Hypertensive chronic kidney disease with stage 1 through stage 4 chronic kidney disease, or unspecified chronic kidney disease; E11.22 Type 2 diabetes mellitus with diabetic chronic kidney disease; N18.9 Chronic kidney disease, unspecified; I48.91 Unspecified atrial fibrillation; E03.9 Hypothyroidism, unspecified; Z98.890 Other specified postprocedural states; Z79.899 Other long term (current) drug therapy; Z79.01 Long term (current) use of anticoagulants; Z85.43 Personal history of malignant neoplasm of ovary; Z90.710 Acquired absence of both cervix and uterus